=== PATIENT | female | born 2000 | race African-American/Black ===

== ENCOUNTER 2023-11-16 11:23 | Emergency (ER) | payer MEDICAID, OTHER ==
[~2023-11-16] VITALS: Ht 165.1 cm; Wt 70.0 kg
[2023-11-16 11:27] VITALS: O2SAT 98
[2023-11-16] MEDS: DIPHENHYDRAMINE 50MG/ML VIAL IM STA (11:27)
[2023-11-16] MEDS: HALOPERIDOL LACTATE 5MG/ML VIAL IM STA (11:27)
[2023-11-16] MEDS: LORAZEPAM 2MG/ML INJ IM STA (11:27)
[2023-11-16 11:57] LABS: EOSINOPHILS % 2.8 % (0.0-5.0); HEMATOCRIT. 38.6 % (36.0-48.0); HEMOGLOBIN. 12.9 g/dL (12.0-16.0); LYMPHOCYTES % 26.4 % (20.0-50.0); MEAN CORPUSCULAR HEMOGLOBIN 31.5 pg (28.0-32.0); MEAN CORPUSCULAR HGB CONC 33.3 g/dL (31.0-37.0); MEAN CORPUSCULAR VOLUME 94.5 fL (81.0-99.0); MEAN PLATELET VOLUME 8.9 fl (7.4-10.4); MONOCYTES % 9.4 % (2.0-8.0); NEUTROPHILS % 60.4 % (40.0-76.0); PLATELET 257 x1000/uL (130-400); RED BLOOD CELL COUNT 4.09 mill/uL (4.2-5.4); RED CELL DISTRIBUTION WIDTH 12.3 % (11.6-14.6); WHITE BLOOD COUNT 7.3 x1000/uL (4.5-11.0)
[2023-11-16 12:08] LABS: CHLORIDE 112 mEq/L (98-107); POTASSIUM 3.4 mEq/L (3.5-5.1); SODIUM 145 mEq/L (136-145)
[2023-11-16 12:09] LABS: CALCIUM 8.8 mg/dL (8.7-10.4); CARBON DIOXIDE 26 mEq/L (21-32)
[2023-11-16 12:14] LABS: CREATININE 0.7 mg/dL (0.6-1.0); ETHANOL BLOOD 210 mg/dL (<10); GLUCOSE 98 mg/dL (70-105)
[2023-11-16 12:20] LABS: HCG SCREEN NEGATIVE
[2023-11-16 12:23] LABS: UREA NITROGEN BLOOD < 5 mg/dL (9-23)
[2023-11-16 19:33] LABS: CLARITY URINE CLEAR (CLEAR); COLOR URINE YELLOW (YELLOW); GLUCOSE URINE NEGATIVE (NEGATIVE); KETONES URINE NEGATIVE (NEGATIVE); LEUKOCYTE ESTERASE URINE NEGATIVE (NEGATIVE); NITRITE URINE NEGATIVE (NEGATIVE); OCCULT BLOOD URINE NEGATIVE (NEGATIVE); PH URINE 6.5 (4.5-8.0); PROTEIN URINE NEGATIVE (NEGATIVE); SPECIFIC GRAVITY URINE 1.017 (1.005-1.030); UROBILINOGEN URINE 0.2 E.U./dL (0.2-1.0)
[2023-11-16 19:41] LABS: *AMPHETAMINES SCREEN URINE NEGATIVE (NEGATIVE); *BARBITURATES SCREEN URINE NEGATIVE (NEGATIVE); *BENZODIAZEPINES SCREEN URINE NEGATIVE (NEGATIVE); *COCAINE SCREEN URINE NEGATIVE (NEGATIVE); METHADONE URINE SCREEN NEGATIVE (NEGATIVE); OPIATES URINE SCREEN NEGATIVE (NEGATIVE)
[2023-11-16 19:42] LABS: CANNABINOID URINE SCREEN NEGATIVE (NEGATIVE); ECSTASY MDMA SCREEN URINE NEGATIVE (NEGATIVE); PHENCYCLIDINE URINE SCREEN NEGATIVE (NEGATIVE)
[2023-11-17 10:28] VITALS: BP 116/63; PULSE 74; RESP 20; TEMP 36.83628; O2SAT 100
== END 2023-11-17 10:16 | disposition home or self-care (01) ==
LOC: ER 11:34
DX: F23 Brief psychotic disorder (principal); R45.1 Restlessness and agitation; F31.9 Bipolar disorder, unspecified; Z20.822 Contact with and (suspected) exposure to COVID-19
CPT/HCPCS: 80305; 80048; 81003; 80320; 84703; 85025; 36415; 96372; 99285; 87426; J1200; J1630; J2060; Z7610 ×2; G0480

== ENCOUNTER 2024-10-18 23:06 | Emergency (ER) | payer OTHER ==
[~2024-10-18] VITALS: Ht 167.6 cm; Wt 100.0 kg
[2024-10-18] MEDS: HALOPERIDOL LACTATE 5MG/ML VIAL IM ONE (23:24)
[2024-10-18] MEDS: DIPHENHYDRAMINE 50MG/ML VIAL IM ONE (23:25)
[2024-10-18] MEDS: LORAZEPAM 2MG/ML UD SYRINGE IM NR (23:25)
[2024-10-18] MEDS: HALOPERIDOL LACTATE 5MG/ML VIAL IM NR (23:25)
[2024-10-18] MEDS: DIPHENHYDRAMINE 50MG/ML VIAL IM NR (23:25)
[2024-10-19 00:57] LABS: BASOPHILS % 0.9 % (0.0-2.0); EOSINOPHILS % 2.0 % (0.0-5.0); HEMATOCRIT. 37.4 % (36.0-48.0); HEMOGLOBIN. 12.5 g/dL (12.0-16.0); LYMPHOCYTES % 38.1 % (20.0-50.0); MEAN PLATELET VOLUME 9.2 fl (7.4-10.4); MONOCYTES % 10.3 % (2.0-8.0); NEUTROPHILS % 48.7 % (40.0-76.0); PLATELET 278 x1000/uL (130-400); RED BLOOD CELL COUNT 3.96 mill/uL (4.2-5.4); RED CELL DISTRIBUTION WIDTH 12.8 % (11.6-14.6)
[2024-10-19 01:10] LABS: CREATININE 0.7 mg/dL (0.6-1.0); ETHANOL BLOOD 180 mg/dL (<10); UREA NITROGEN BLOOD 7 mg/dL (9-23)
[2024-10-19 01:16] LABS: HCG SCREEN NEGATIVE
[2024-10-19 02:15] VITALS: O2SAT 98
[2024-10-19 04:06] LABS: *AMPHETAMINES SCREEN URINE NEGATIVE (NEGATIVE); *BARBITURATES SCREEN URINE NEGATIVE (NEGATIVE)
[2024-10-19 04:07] LABS: *BENZODIAZEPINES SCREEN URINE NEGATIVE (NEGATIVE); *COCAINE SCREEN URINE NEGATIVE (NEGATIVE); CANNABINOID URINE SCREEN PRESUMPTIVE POSITIVE (NEGATIVE); ECSTASY MDMA SCREEN URINE NEGATIVE (NEGATIVE); METHADONE URINE SCREEN NEGATIVE (NEGATIVE); OPIATES URINE SCREEN NEGATIVE (NEGATIVE); PHENCYCLIDINE URINE SCREEN NEGATIVE (NEGATIVE)
[2024-10-19 20:00] VITALS: TEMP 37
[2024-10-19 22:35] VITALS: BP 110/74; PULSE 91; RESP 14; O2SAT 98
== END 2024-10-19 23:40 ==
LOC: ER 23:06
DX: F29 Unspecified psychosis not due to a substance or known physiological condition (principal); F20.9 Schizophrenia, unspecified; F31.9 Bipolar disorder, unspecified; Z20.822 Contact with and (suspected) exposure to COVID-19; Z79.899 Other long term (current) drug therapy
CPT/HCPCS: 80048; 80307; 80329; 80320; 84703; 85025; 36415; 96372; 99291; 80305; 87426; J1200; J1630; J2060; 99285; A4606; G0480